=== PATIENT | female | born 1980 | race Two or more races ===

== ENCOUNTER 2024-10-16 01:36 | Emergency (ER) | payer SELFPAY ==
[2024-10-16 01:37] VITALS: BMI 35.4
[2024-10-16 02:29] VITALS: BP 155/98; PULSE 90; RESP 20; TEMP 37.1; O2SAT 99
--- NOTE | 2024-10-16 02:45 | EDNOTE_ITS ---
ED Abdominal Pain RME/HPI General Chief Complaint: Abdominal Pain Stated complaint: LEFT ABD PAIN WITH NAUSEA Time seen by provider: 10/16/24 02:35 Arrival date/time: 10/16/24 01:36 RME / HPI RME / HPI narrative: Dr. Hill?s Main ED Evaluation: 44yo female with a history of kidney stones presents to the ED for a chief complaint of severe LLQ pain x 1-2 days. Patient states her pain radiates to her back, reporting it's constant. Patient reports associated nausea, dysuria, frequency, and urgency. Patient denies any vomiting, fever, chills, diarrhea, chest pain, shortness of breath ot any other associated symptoms. No known allergies. Related Data Allergies Allergy/AdvReac Type Severity Reaction Status Date / Time No Known Allergies Allergy Verified 10/16/24 01:37 Review of Systems Review of Systems Systems Reviewed: All systems reviewed, normal except as documented Past Medical History Social History SMOKING STATUS: Former smoker ED Exam Narrative Physical exam: GENERAL APPEARANCE: alert and oriented x 4, well-developed, well-nourished, in moderate pain distress VITALS: All vitals were reviewed and the pulse ox is 99% on room air, which is normal according to my interpretation. HEENT: Normocephalic, atraumatic; pupils equal, round, reactive to light; EOMI; mucous membranes pink, moist; oropharynx clear NECK: Supple LUNGS: CTABL; no wheezes, no rales, no rhonchi HEART: Regular rate, regular rhythm; normal S1, S2; no murmurs ABDOMEN: non distended; normal BS; soft, no tenderness, no guarding, no rebound; no masses, no organomegaly, no hernia BACK: left CVA tenderness EXTREMITIES: atraumatic; no edema NEUROLOGIC: awake; alert and oriented x4; cranial nerves II-XII grossly intact; no focal sensory or motor deficits PSYCHIATRIC: appropriate mood and affect SKIN: warm, dry, normal color; no rashes Course Quality Measures none Orders Category Date Time Status Manager Educational STAT Care 10/16/24 02:58 Active Continuous Pulse Oximetry STAT Care 10/16/24 02:58 Completed EKG (ED ONLY) *Do not use* NOW Care 10/16/24 02:58 Completed Insert IV STAT Care 10/16/24 02:[address] abdomen pelvis wo con Stat Exams 10/16/24 04:50 Taken EKG (ED Only) Stat Exams 10/16/24 02:57 Ordered Blood Culture (Lab) Stat Lab 10/16/24 03:42 Received CBC Stat Lab 10/16/24 02:55 Completed Comprehensive Metabolic Panel Stat Lab 10/16/24 02:55 Completed HCG Qualitative,Urine Stat Lab 10/16/24 02:55 Completed Lipase Stat Lab 10/16/24 02:55 Completed Magnesium Stat Lab 10/16/24 02:55 Completed Urinalysis Stat Lab 10/16/24 02:55 Completed Urinalysis, C/S if Indicated Stat Lab 10/16/24 04:52 Ordered Urine Culture Stat Lab 10/16/24 03:49 Ordered Acetaminophen Ivpb [Ofirmev Inj] Med 10/16/24 03:00 Discontinued 1,000 mg in 100 ml IV X1 Ketorolac Inj [Toradol Inj] Med 10/16/24 02:57 Discontinued 30 mg IVP X1 ONE Phenazopyridine HCl [Pyridium] Med 10/16/24 02:57 Discontinued 100 mg PO X1 ONE Sodium Chloride 0.9% 1000 ml [Ns] 1,000 ml Med 10/16/24 02:57 Discontinued IV 999 mls/hr cefTRIAXone/D5w 1gm IV premix [Rocephin/D5w 1gm IV Med 10/16/24 02:57 Discontinued premix] 1 gm in 50 ml IV X1 Vital Signs Vital signs: Vital Signs Temperature 98.7 F 10/16/24 02:29 Pulse Rate 90 10/16/24 02:29 Respiratory Rate 20 10/16/24 02:29 Blood Pressure 155/98 H 10/16/24 02:29 Pulse Oximetry (%) 99 10/16/24 02:29 Oxygen Delivery Method Room Air 10/16/24 02:29 Abdominal Pain MDM MDM Narrative MDM Narrative:: Scribe Attestation: 10/16/24 Josephine Brooks am scribing for and in the presence of Dr. Hill. Patient data External records reviewed:: [facility] previous records (Per chart review, patient has no previous ED visits or admissions to this facility.) Clinical information provided by:: patient Social determinants that could affect healthcare access:: none Patient has the following chronic illnesses:: none How is presenting disease/condition affected by chronic disease/condition?: no chronic disease Evaluation data The following diagnostics were reviewed and interpreted by me:: lab results and radiology exam(s) Lab and/or radiology exams considered but not ordered:: none Interpretation Summary: WBC count is elevated at 16.8, CMP is normal, Lipase is normal, HCG is negative, Initial UA is unremarkable, according to my interpretation Repeat UA is ordered. CT abdomen pelvis is pending at sign out. Medications / Prescriptions Medications or Prescriptions considered but not ordered:: none Medication administrations:: Medication Administration History Discontinued Medications Sodium Chloride (Ns) 1,000 mls @ 999 mls/hr IV .Q1H1M ONE Stop: 10/16/24 03:57 Last Infusion: 10/16/24 04:40 Dose: Infused Documented By: Admin: 10/16/24 03:25 Dose: 999 mls/hr Documented By: ELIO Ceftriaxone Sodium/Dextrose (Rocephin/D5w 1gm Iv Premix) 1 gm in 50 mls @ 100 mls/hr IV X1 ONE Stop: 10/16/24 03:26 Last Infusion: 10/16/24 04:40 Dose: Infused Documented By: Admin: 10/16/24 03:38 Dose: 100 mls/hr Documented By: ELIO Acetaminophen (Ofirmev Inj) 1,000 mg in 100 mls @ 250 mls/hr IV X1 ONE Stop: 10/16/24 03:23 Last Infusion: 10/16/24 03:57 Dose: Infused Documented By: Admin: 10/16/24 03:24 Dose: 250 mls/hr Documented By: ELIO Ketorolac Tromethamine (Ketorolac Inj 30 Mg/Ml Vial) 30 mg IVP X1 ONE Stop: 10/16/24 02:58 Last Admin: 10/16/24 03:25 Dose: 30 mg Documented By: ELIO Phenazopyridine HCl (Phenazopyridine Hcl 100 Mg Tablet) 100 mg PO X1 ONE Stop: 10/16/24 02:58 Last Admin: 10/16/24 03:25 Dose: 100 mg Documented By: ELIO see above Consultations Consultation(s) initiated? (list below): No Diagnosis Differential diagnosis abdominal pain: diverticulitis and other (pyelonephritis, renal colic) Most likely diagnosis given after review of the tests above:: see clinical impression below Admission Indicated Admission indicated?: not indicated Admission Request Was there a request for admission?: No Disposition Plan Disposition Plan: other (specify) (Signed out to Dr. Farris at [address] abdomen pelvis, repeat UA, and final disposition.) Discharge Plan Prescriptions/Referrals Referrals: No Primary/Family,Physician [Primary Care Provider] - In 1 week Problem List Clinical Impression: Flank pain Patient/Caregiver Discharge Instructions Print Language: Bhutanese
--- NOTE | 2024-10-16 02:57 | EKG_ITS ---
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
[2024-10-16 03:13] LABS: Collection Type, Urine Clean Catch; RBC,Urine 0 /hpf (0-3); WBC,Urine 0 /hpf (0-5)
[2024-10-16 03:23] LABS: Basophils % (Auto) 0 % (0-2.5); Eosinophils # (Auto) 0.1 Thou/mm3 (0.0-0.5); Eosinophils % (Auto) 0 % (0-10); Hematocrit 34.8 % (36.0-46.0); Immature Granulocytes % (Auto) 1 % (0-0); Immature Granulocytes Auto 0.08 Thou/mm3 (0.00-0.00); Lymphocytes # (Auto) 1.8 Thou/mm3 (1.0-4.8); Lymphocytes % (Auto) 11 % (10-50); Mean Corpuscular HGB Conc 31.6 g/dl (31.0-37.0); Mean Corpuscular Hemoglobin 25.7 pg (25.0-35.0); Mean Corpuscular Volume 81 fL (80-100); Monocytes # (Auto) 0.8 Thou/mm3 (0.0-0.8); Monocytes % (Auto) 5 % (0-12); Neutrophils % (Auto) 84 % (37-80); Nucleated Red Blood Cell % 0 /100 WBC (0); Platelet Count 409 Thou/mm3 (140-440); Red Blood Count 4.28 Miln/mm3 (4.00-5.20); White Blood Count 16.8 Thou/mm3 (3.6-11.0)
[2024-10-16] MEDS: ACETAMINOPHEN IVPB 1,000 MG/100 ML VIAL 250 MG IV (03:24)
[2024-10-16] MEDS: SODIUM CHLORIDE 0.9% 1000 ML 1,000 ML 999 ML IV (03:25)
[2024-10-16] MEDS: PHENAZOPYRIDINE HCL 100 MG TABLET PO (03:25)
[2024-10-16] MEDS: KETOROLAC INJ 30 MG/ML VIAL IVP (03:25)
[2024-10-16] MEDS: cefTRIAXone/D5w 1gm IV premix 1 GM/50 ML BAG IV (03:38)
[2024-10-16 03:47] VITALS: PULSE 85
[2024-10-16 03:48] LABS: Alanine Aminotransferase 17 U/L (10-49); Albumin, Serum 4.6 gm/dL (3.5-5.0); Albumin/Globulin Ratio 1.6 (1.2-2.2); Alkaline Phosphatase 66 U/L (46-116); Anion Gap 6 (7-16); Aspartate Amino Transferase 12 U/L (0-34); BUN/Creatinine Ratio 11 Ratio (12-20); Bilirubin,Total 0.3 mg/dL (0.3-1.2); Blood Urea Nitrogen 11 mg/dL (9-23); Carbon Dioxide 25.2 mMol/L (20.0-31.0); Chloride 109 mMol/L (98-107); Estimated Creatinine Clearance 76.8 mL/min (>60); Globulin 2.9 gm/dL (2.3-3.5); Glucose 160 mg/dL (74-106); Lipase 41 U/L (12-53); Osmolality,Calculated 281 (275-295); Sodium 140 mMol/L (136-145); Total Protein 7.5 gm/dL (5.7-8.2); eGFR > 60 See Note
[2024-10-16 03:53] LABS: Bacteria,Urine 1+; Bilirubin,Urine Negative (Negative); Blood,Urine Negative (Negative); Clarity,Urine Clear (Clear/Hazy); Color,Urine Yellow (Lt Yel-Yel); Glucose, Urine Negative (Negative); Ketones,Urine Negative (Negative); Leukocyte Esterase,Urine Negative (Negative); Nitrite,Urine Negative (Negative); PH,Urine 5.5 (5.0-7.0); Protein,Urine Negative (Neg - Trace); Specific Gravity,Urine 1.022 (1.001-1.035); Squamous Epithelial Cell,Urine 5 /hpf (0-5); Urobilinogen,Urine Negative mg/dL (0.0-1.0)
[2024-10-16 04:31] LABS: HCG Qualitative,Urine Negative
--- NOTE | 2024-10-16 04:50 | XR_ITS ---
Examination: CT abdomen and pelvis without contrast. Coronal 3-D reconstructions. Sagittal 2-D reconstructions. Date and time of exam:October 16, 2024 0459 hours INDICATIONS: Onset left lower abdominal pain with nausea today, history kidney stones CTDI: vol (mGy): 11.7 DLP: (mGycm): 710 Technique: Axial images of the abdomen have been obtained, 3 mm slice thickness Intravenous contrast material has not been administered. Low dose protocols were performed. One or more of the following dose reduction techniques were used; automated exposure control, adjustment of the mA and/or KV according to patient size, use of iterative reconstruction technique. Findings: No focal liver or splenic lesions Absent gallbladder No pancreatic mass 1 mm upper pole 2 mm lower pole left renal calculi 2 mm posterior right renal calculus Mild left hydronephrosis, likely secondary to 2 mm calculus now present in the urinary bladder Hypodense mass in the anterior right pelvis, 3.9 cm Anteverted uterus Osseous structures intact with advanced degenerative disc disease L5-S1 IMPRESSION: Mild left hydronephrosis, likely secondary to recently passed 2 mm calculus now projecting in the urinary bladder. Recommend pelvic sonography to assess 3.9 cm possible cyst in the right pelvis
[2024-10-16 06:04] VITALS: BP 168/95; PULSE 96; RESP 15; TEMP 37.1; O2SAT 95
--- NOTE | 2024-10-16 06:55 | PD.EDADDENDU ---
Emergency Room Addendum Addendum Narrative: 0600: Care assumed from Dr. Hill, the previous shift emergency physician. Past medical, surgical, social and family history reviewed. Vitals and home medications reviewed. I will assume the care of the patient at this time, pending CT report, repeat UA and final disposition. Please refer to the emergency department record for history and examination from initial visit.?The following addendum documentation note is intended to reflect any pending information, findings, or radiology results not included in the patient?s initial chart. Nursing notes reviewed by me. Vital signs reviewed by me. [facility] medical records reviewed by me. No previous visits for review. EKG @ 03:09 am. Interpreted by me shows sinus rhythm, rate 92, normal axis, normal intervals, no acute ischemic changes, no STEMI. 0655: Patient states at this time her pain has improved and is aware of the pending CT and repeat UA. States when she first arrived, the pain was located most to the left flank without radiation and similar to previous kidney stone pain. On examination patient is awake, alert, oriented, no distress or complaints of pain, lungs are clear on auscultation. 0715: Patient reports being upset and wants to leave. I advised patient stay to receive her results. However, states she does not want to wait and will be leaving against medical advise. I discussed a great length that without further evaluation and monitoring there may be unforeseen circumstances and deterioration causing permanent bodily harm or as a result of their choice. The patient is alert, oriented and competent at this time. The patient states that they are aware of the serious risks as explained, but they continue to wish to leave against medical advice.
--- NOTE | 2024-10-16 07:19 | PC.NURSE ---
PT REQUESTED TO LEAVE. PROVIDER NOTIFIED ON PTS REQUEST
[2024-10-16 08:08] LABS: Collection Type, Urine Clean Catch
[2024-10-16 08:10] LABS: Bacteria,Urine Rare; Bilirubin,Urine 1+ (Negative); Blood,Urine Negative (Negative); Clarity,Urine Clear (Clear/Hazy); Color,Urine Drk-Yellow (Lt Yel-Yel); Glucose, Urine Negative (Negative); Ketones,Urine Negative (Negative); Leukocyte Esterase,Urine Negative (Negative); Nitrite,Urine Positive (Negative); Protein,Urine Negative (Neg - Trace); RBC,Urine < 1 /hpf (0-3); Specific Gravity,Urine 1.019 (1.001-1.035); Squamous Epithelial Cell,Urine 6 /hpf (0-5); WBC,Urine 1 /hpf (0-5)
[2024-10-16 08:18] VITALS: BP 158/117; PULSE 92; RESP 16; TEMP 36.7; O2SAT 99
[2024-10-16 09:04] LABS: Culture Indicated,Urine Yes
== END 2024-10-16 08:15 | disposition home or self-care (01) ==
PROVIDERS: Emergency Provider Emergency Medicine
DX: R10.32 Left lower quadrant pain (principal); D72.829 Elevated white blood cell count, unspecified; Z87.442 Personal history of urinary calculi
CPT/HCPCS: 36415; 74176; 80053; 81001; 81025; 83690; 83735; 85025; 87040; 87086; 93005; 96365; 96367; 99284; J0131; J0696; J1885; J7030; A9270